=== PATIENT | female | born 1985 | race Caucasian/White ===

== ENCOUNTER 2017-01-04 04:18 | Inpatient (IN) | payer BC ==
[~2017-01-04] VITALS: Ht 160 cm; Wt 97.5 kg
[2017-01-04] MEDS ORDERED: OXYTOCIN/NORMAL SALINE 1,000 ML IV SCH (04:57)
[2017-01-04] MEDS ORDERED: TERBUTALINE SULFATE 1 MG/ML VIAL SUBCUT ONE (05:00)
[2017-01-04 05:11] VITALS: BP_SYST 122
[2017-01-04] MEDS ORDERED: OXYTOCIN/NORMAL SALINE 1,000 ML IV ONE (05:13)
[2017-01-04] MEDS: LR 1,000 ML IV SCH ×2 (05:37→12:11)
[2017-01-04 06:03] LABS: BASOPHILS % (AUTO) 0.3 % (0.0-2.0); EOSINOPHILS # (AUTO) 0.2 K/uL (0.0-0.4); EOSINOPHILS % (AUTO) 1.1 % (0.0-4.0); HEMATOCRIT 39.5 % (36-48); HEMOGLOBIN 13.1 g/dL (12.0-16.0); LYMPHOCYTES % (AUTO) 14.9 % (20.5-51.5); MEAN CORPUSCULAR HEMOGLOBIN 32 pg (27-31); MEAN CORPUSCULAR HGB CONC 33 % (32-36); MEAN CORPUSCULAR VOLUME 97 fL (79.0-98.0); MONOCYTES # (AUTO) 1.1 K/uL (0.0-1.0); MONOCYTES % (AUTO) 7.8 % (1.7-9.3); NEUTROPHILS # (AUTO) 10.4 K/uL (1.8-7.7); NEUTROPHILS % (AUTO) 75.9 % (40.0-70.0); PLATELET COUNT (AUTO) 190 K/uL (130-430); RED BLOOD CELL COUNT(AUTO) 4.09 MIL/uL (4.2-6.2); RED CELL DISTRIBUTION WIDTH 12.3 % (9.0-15.0); WHITE BLOOD COUNT (AUTO) 13.7 K/uL (4.8-10.8)
[2017-01-04] MEDS: NALBUPHINE HCL 10 MG/ML AMP IVP PRN ×2 (12:06→14:10)
[2017-01-04] MEDS ORDERED: AMPICILLIN SODIUM 2 GM in NS 100 ML IV ONE (12:45)
[2017-01-04] MEDS ORDERED: FENT2mCg/mL-ROPIVA0.2%/NS EPID 0 ML EP ONE (15:27)
[2017-01-04] MEDS ORDERED: FENT2mCg/mL-ROPIVA0.2%/NS EPID 150 ML EP ONE (16:14)
[2017-01-04] MEDS ORDERED: LR 500 ML IV ONE (16:55)
[2017-01-04] MEDS ORDERED: FENT2mCg/mL-ROPIVA0.2%/NS EPID 150 ML EP SCH (17:00)
[2017-01-04] MEDS ORDERED: ePHEDrine sulfate 50 MG/ML VIAL IVP PRN (17:00)
[2017-01-04] MEDS: AMPICILLIN SODIUM 1 GM in NS 50 ML IV SCH ×2 (18:03→21:33)
[2017-01-05] MEDS ORDERED: GLYCERIN/WITCH HAZEL (TUCKS PADS) TP PRN (01:15)
[2017-01-05] MEDS ORDERED: HYDROCORTISONE 0.5%, 28.35 GM TOPICAL CREAM TP PRN (01:15)
[2017-01-05] MEDS ORDERED: LANOLIN 7 GM OINT. TP PRN (01:15)
[2017-01-05] MEDS ORDERED: DERMOPLAST SPRAY TP PRN (01:15)
[2017-01-05] MEDS ORDERED: SENNOSIDES/DOCUSATE SODIUM 1 TAB TABLET(SENOKOT-S) PO PRN (01:15)
[2017-01-05] MEDS ORDERED: MEASLES,MUMPS&RUBELLA VACC/PF 12500 UNIT/0.5 ML VIAL SUBQ PRN (01:15)
[2017-01-05] MEDS ORDERED: METHYLERGONOVINE MALEATE 0.2 MG TABLET PO PRN (01:15)
[2017-01-05] MEDS ORDERED: ANUSOL 1 EA SUPP.RECT (PREPARATION H) RC PRN (01:15)
[2017-01-05] MEDS ORDERED: OXYTOCIN/NORMAL SALINE 1,000 ML IV SCH (01:15)
[2017-01-05] MEDS ORDERED: OXYTOCIN/NORMAL SALINE 1,000 ML IV ONE (01:15)
[2017-01-05] MEDS ORDERED: RHO(D) IMMUNE GLOBULIN/MALTOSE 1500 UNITS/1.3 ML (WINHRO) IM PRN (01:15)
[2017-01-05] MEDS ORDERED: DOCUSATE SODIUM 100 MG CAPSULE PO PRN (01:15)
[2017-01-05] MEDS ORDERED: OXYCODONE/ACETAMINOPHEN 5-325 TABLET PO PRN (04:00)
[2017-01-05] MEDS: HYDROcodone/ACETAMIN 5-325 MG TAB (NORCO/ VICODIN) PO PRN ×3 (04:19→14:43)
[2017-01-05] MEDS: IBUPROFEN 600 MG TABLET PO SCH ×4 (05:51→23:30)
[2017-01-06] MEDS: IBUPROFEN 600 MG TABLET PO SCH ×2 (05:35→12:05)
[2017-01-06] MEDS: HYDROcodone/ACETAMIN 5-325 MG TAB (NORCO/ VICODIN) PO PRN (05:49)
[2017-01-06 07:04] LABS: BASOPHILS % (AUTO) 0.2 % (0.0-2.0); EOSINOPHILS # (AUTO) 0.2 K/uL (0.0-0.4); EOSINOPHILS % (AUTO) 1.6 % (0.0-4.0); HEMATOCRIT 33.4 % (36-48); HEMOGLOBIN 11.2 g/dL (12.0-16.0); LYMPHOCYTES # (AUTO) 2.8 K/uL (1.0-5.5); LYMPHOCYTES % (AUTO) 21.2 % (20.5-51.5); MEAN CORPUSCULAR HEMOGLOBIN 33 pg (27-31); MEAN CORPUSCULAR HGB CONC 34 % (32-36); MEAN CORPUSCULAR VOLUME 98 fL (79.0-98.0); MONOCYTES % (AUTO) 7.9 % (1.7-9.3); NEUTROPHILS % (AUTO) 69.1 % (40.0-70.0); PLATELET COUNT (AUTO) 148 K/uL (130-430); RED BLOOD CELL COUNT(AUTO) 3.41 MIL/uL (4.2-6.2); RED CELL DISTRIBUTION WIDTH 12.5 % (9.0-15.0)
== END 2017-01-06 16:15 | disposition home or self-care (01) | DRG 775 ==
LOC: SPU 04:18 → OBSVTOIN 04:18 → SPU 09:35
PROVIDERS: ADMIT Obstetrics & Gynecology; ATTEND Obstetrics & Gynecology
PROC: 3E0S3CZ (ICD-10-PCS; 2017-01-04)
PROC: 00HU33Z Insertion of Infusion Device into Spinal Canal, Percutaneous Approach (ICD-10-PCS; 2017-01-04)
PROC: 10E0XZZ Delivery of Products of Conception, External Approach (ICD-10-PCS; principal; 2017-01-05)
PROC: 0W8NXZZ Division of Female Perineum, External Approach (ICD-10-PCS; 2017-01-05)
PROC: 3E0134Z Introduction of Serum, Toxoid and Vaccine into Subcutaneous Tissue, Percutaneous Approach (ICD-10-PCS; 2017-01-05)
DX: O42.92 Full-term premature rupture of membranes, unspecified as to length of time between rupture and onset of labor (principal); O69.81X0 Labor and delivery complicated by cord around neck, without compression, not applicable or unspecified; Z3A.38 38 weeks gestation of pregnancy; Z37.0 Single live birth; Z23 Encounter for immunization
CPT/HCPCS: 36415; 81002-TC; 85025; 86592; 86886; 86900; 86901; 94760; J0290; J2300; J2590; J3010